=== PATIENT | male | born 1955 | race Caucasian/White ===

== ENCOUNTER → 2020-07-11 | Outpatient (CLI) | payer MEDICARE ==
[2020-07-11 12:40] LABS: Basophils # (A) 0.1 k/uL (0-0.2); Basophils % (A) 1 %; Eosinophils # (A) 0.1 k/uL (0-0.7); Eosinophils % (A) 2 %; HCT 51.4 % (39.0-53.0); HGB 17.1 gm/dL (13.0-17.5); Lymphocytes # (A) 1.5 k/uL (1.0-4.8); Lymphocytes % (A) 23 %; MCH 29.5 pg (25.0-35.0); MCHC 33.3 g/dL (31.0-37.0); MCV 88.5 fL (80.0-100.0); Mean Platelet Volume 8.2; Monocytes # (A) 0.5 k/uL (0-1.0); Monocytes % (A) 7 %; Neutrophils # (A) 4.3 k/uL (1.3-7.7); Neutrophils % (A) 65 %; Platelet Count 246 k/uL (150-450); RDW 12.6 % (11.5-15.5); WBC 6.6 k/uL (3.8-10.6)
[2020-07-11 20:33] LABS: Hemoglobin A1C 5.5 % (4.0-6.0)
[2020-07-12 01:03] LABS: African American GFR (CKD) 80.6 (60.0-200.0); Anion Gap 11.7 mmol/L (4.00-12.00); BUN/Creat Ratio 14.55 Ratio (12.00-20.00); Calcium 10.1 mg/dL (8.7-10.3); Carbon Dioxide 23.3 mmol/L (21.6-31.8); Chol/HDL Ratio 4.21; LDL Cholesterol,Calculated 76.6 mg/dL (0.0-131.0); Non-African American GFR(CKD) 69.6 (60.0-200.0); Potassium 4.4 mmol/L (3.5-5.5); VLDL Calculation 77.4 mg/dL (5.00-40.00)
[2020-07-12 01:12] LABS: Prostate Specific Antigen 1.7 ng/mL (0.0-4.5)
== END | disposition home or self-care (01) ==
LOC: LABWHC1 12:16
PROVIDERS: ATTEND Internal Medicine
DX: R97.20 Elevated prostate specific antigen [PSA] (principal); D12.6 Benign neoplasm of colon, unspecified; R73.01 Impaired fasting glucose; E78.2 Mixed hyperlipidemia
CPT/HCPCS: 36415; 80048; 80061; 83036; 84153; 84450; 84460; 85025

== ENCOUNTER → 2020-08-01 | Outpatient (CLI) | payer MEDICARE | END | disposition home or self-care (01) | LOC: LABWHC1 10:19 | PROVIDERS: ATTEND Internal Medicine | DX: B34.9 Viral infection, unspecified (principal) | CPT/HCPCS: U0003; C9803 ==

== ENCOUNTER → 2022-03-25 | Outpatient (CLI) | payer MEDICARE, OTHER ==
--- NOTE | 2022-03-25 14:08 | MR ---
EXAMINATION TYPE: MR brain wo/w con DATE OF EXAM: 03/25/2022 1:06 PM COMPARISON: NONE HISTORY: Tinnitus of both ears CONTRAST: Patient received 6 mL intravenous Gadavist gadolinium contrast. Multiplanar and multispin-echo imaging of the brain was performed . Pre and post contrast enhanced i mages are obtained. The ventricles, basal cisterns and sulci overlying the cerebral convexities are mildly enlarged. There is evidence of mild periventricular white matter ischemic demyelination. Remote deep white matter insults are also noted. No acute edema is seen on diffusion weighted imaging. There is no evidence for midline shift or mass effect. Acute intracranial hemorrhage or extra-axial collection is not evident. No enhancing lesions are seen. The paranasal sinuses and mastoid air cells are well-aerated. IMPRESSION: Age-related atrophic and chronic small vessel ischemic change. No acute intracranial process at this time. No enhancing lesions are seen.
== END | disposition home or self-care (01) ==
LOC: RADMRIMAIN 11:49
PROVIDERS: ATTEND Internal Medicine
DX: H93.13 Tinnitus, bilateral (principal)
CPT/HCPCS: 70553; A9585

== ENCOUNTER → 2025-03-07 | Outpatient (CLI) | payer MEDICARE, OTHER ==
--- NOTE | 2025-03-11 13:12 | MR ---
EXAMINATION TYPE: MR cervical spine wo/w con DATE OF EXAM: 03/07/2025 4:46 PM COMPARISON: None. CLINICAL INDICATION: Male, 69 years old with history of M47.12, Neck pain and shoulder pain and muscl e weakness for 6 months, history of surgery. TECHNIQUE: Multiplanar multiecho imaging on a 3.0 Luann magnet is performed through the cervical spin e. IV Contrast: 6.5 mL Gadobutrol (None, if empty) FINDINGS: The craniovertebral junction is normal. Vertebral body alignment is normal. There is inc reased signal within the spinal cord CT 3 4 through C5. C7-T1: No focal disc herniation or significant disc bulge is evident. No spinal canal stenosis or n eural foraminal stenosis is present. C6-7: Broad-based C6-7 disc herniation is present with moderate anterior thecal sac compression. This comes in close approximation with the spinal cord. Cord deformity is not evident. There is right for aminal stenosis.. C5-6: No focal disc herniation or significant disc bulge is evident. No spinal canal stenosis or kyrie ral foraminal stenosis is present. Cervical fusion is present at this level. C4-5: No focal disc herniation or significant disc bulge is evident. No spinal canal stenosis or kyrie ral foraminal stenosis is present. Cervical fusion is present at this level. C3-4: Loss of disc height is present at this level. No focal disc herniation or significant disc bul ge is evident. No spinal canal stenosis or neural foraminal stenosis is present. C2-3: No focal disc herniation or significant disc bulge is evident. No spinal canal stenosis or kyrie ral foraminal stenosis is present. No abnormal enhancement is evident. No cord enhancement is evident. IMPRESSION: 1. There may be some myelomalacia within the spinal cord posterior to C4-C5 levels. 2. Broad-based disc bulge with moderate anterior thecal sac compression. Some canal narrowing without stenosis is present at C6-7. 3. Degenerative disc changes with loss of disc height C3-4. [facility], , 03/11/2025 1:10 PM
== END | disposition home or self-care (01) ==
LOC: RADMRIMAIN 15:13
PROVIDERS: ATTEND Internal Medicine
DX: M50.023 Cervical disc disorder at C6-C7 level with myelopathy (principal); M47.12 Other spondylosis with myelopathy, cervical region
CPT/HCPCS: 72156; A9585